=== PATIENT | male | born 1960 | race Caucasian/White ===

== ENCOUNTER 2024-08-07 16:50 | Inpatient (IN) | payer OTHER ==
[~2024-08-07] VITALS: Ht 177.8 cm; Wt 91.5 kg
--- NOTE | 2024-08-07 17:21 | DVH ---
CHEST RADIOGRAPH Indication: DIZZINESS Technique: Single frontal view of the chest was obtained COMPARISON: None FINDINGS: Lines and Tubes: None Lungs: Clear Pleura: No effusion. No pneumothorax. Cardiomediastinal contours: Moderately severe cardiomegaly. Prominence of the right heart border. Bones: Unremarkable IMPRESSION: 1. Moderately severe cardiomegaly No CHF pattern No pleural effusions
[2024-08-07 17:24] LABS: Urine Bacteria None Seen /hpf (None Seen)
--- NOTE | 2024-08-07 17:27 | ED.PDOC ---
History of Present Illness HPI Comments 64 y/o M, with a history with CHF and cardiomyopathy, is BIBA for c/o multiple near-syncope episodes, with associated dizzy spells and lightheadedness for the past 2x days. Patient endorses on most recent onset of symptoms taking place, earlier, today, while at a [employer]. He comments on pending further studies at [facility] for his cardiomyopathy of unknown etiology amidst nuclear and MRI workup showing no significant findings and his ejection fraction, currently, being less than 30%. He denies having any chest pain, shortness of breath, vision or speech changes, weakness, fever, chills, or other associated symptoms or modifiers at this time. 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 Past Medical History PAST MEDICAL HISTORY: CHF Past Medical History (Other): cardiomyopathy Surgical History: Denies all surgeries Family History Family History: Unknown Social History Smoker: Non-Smoker Alcohol: Denies ETOH Use Drugs: Denies Drug Use Lives In: Home Cardiovascular: reports: dizzy spells, lightheadedness, others (near-syncope ) All Other Systems: Reviewed and Negative (negative unless otherwise stated above or in HPI) Physical Exam General Appearance: No Apparent Distress, Normal HEENT: Normal ENT Inspection, Pharynx Normal, TMs Normal Neck: Full Range of Motion, Non-Tender, Normal, Normal Inspection Respiratory: Chest Non-Tender, Lungs Clear, No Accessory Muscle Use, No Respiratory Distress, Normal Breath Sounds Cardiovascular: No Edema, No JVD, No Murmur, No Gallop, Normal Peripheral Pulses, Other (regular rate, irregular rhythm) Breast Exam: Deferred Gastrointestinal: No Organomegaly, Non Tender, No Pulsatile Mass, Normal Bowel Sounds, Soft Genitalia: Deferred Pelvic: Deferred Rectal: Deferred Extremities: No calf tenderness, Normal capillary refill, Normal inspection, Normal range of motion, Non-tender, No pedal edema Musculoskeletal : Apperance: Normal Neurologic: Alert, brewmaster II-XII nml as Tested, No Motor Deficits, Normal Affect, Normal Mood, No Sensory Deficits Cerebellar Function: Normal Reflexes: Normal Skin: Dry, Normal Color, Warm Lymphatic: No Adenopathy Was a procedure done? Was a procedure done?: No EKG EKG : Pulse Rate (adult): 84 Cardiac Rhythm: NSR Block: RBBB Hypertrophy: LVH Comments left anterior fascicular block 1st degree AV block and type II second degree AV block w/junctional escape beats Differential Dx Considerations may include: vasovagal response, URI, viral syndrome, electrolyte imbalance, stemi, nstemi, advanced heart block, chf, arrhythmias X-Ray, Labs, Meds, VS Vital Signs Date Time Temp Pulse Resp B/P (MAP) Pulse Ox O2 Delivery O2 Flow Rate FiO2 08/07/24 17:46 104 25 114/66 (82) 97 08/07/24 17:27 84 08/07/24 17:09 Room Air* 0 21 08/07/24 16:54 43 08/07/24 16:54 98.0 45 24 130/73 (92) 95 08/07/24 16:50 84 Lab Test 08/07/24 18:15 08/07/24 17:24 08/07/24 17:19 Range/Units Troponin I High Sensitivity 102 *H 100 *H </=54 ng/L Urine Color Light-yellow Yellow Urine Clarity Clear Clear Urine pH 5.5 5.0-9.0 Urine Specific [place] 1.018 1.001-1.035 Urine Protein Negative Negative Urine Ketones Negative Negative Urine Blood Negative Negative /uL Urine Nitrite Negative Negative Urine Bilirubin Negative Negative Urine Urobilinogen Normal Negative mg/dL Urine Leukocyte Esterase Negative Negative /uL Urine RBC 5 0 - 3 /hpf Urine Microscopic WBC 1 0-3 /HPF Urine Squamous Epithelial Cells None seen <5 /hpf Urine Bacteria None seen None Seen /hpf Urine Glucose Normal Normal mg/dL White Blood Count 9.3 4.4-10.8 10^3/uL Red Blood Count 5.03 4.5-5.90 10^6/uL Hemoglobin 15.7 13.5-17.5 g/dL Hematocrit 46.6 41.0-53.0 % Mean Corpuscular Volume 92.6 80.0-100.0 fL Mean Corpuscular Hemoglobin 31.2 28.0-32.0 pg Mean Corpuscular Hemoglobin Concent 33.7 32.0-36.0 g/dL Red Cell Distribution Width 14.6 H 11.8-14.3 % Platelet Count 195 140-450 10^3/uL Mean Platelet Volume 6.7 L 6.9-10.8 fL Neutrophils (%) (Auto) 79.4 37.0-80.0 % Lymphocytes (%) (Auto) 14.2 10.0-50.0 % Monocytes (%) (Auto) 5.7 0.0-12.0 % Eosinophils (%) (Auto) 0.2 0.0-7.0 % Basophils (%) (Auto) 0.5 0.0-2.0 % Neutrophils # (Auto) 7.4 1.6-8.6 10 ^3/uL Lymphocytes # (Auto) 1.3 0.4-5.4 10 ^3/uL Monocytes # (Auto) 0.5 0-1.3 10 ^3/uL Eosinophils # (Auto) 0 0-0.8 10 ^3/uL Basophils # (Auto) 0 0-0.2 10 ^3/uL Nucleated Red Blood Cells 0.3 % Sodium Level 142 136-145 mmol/L Potassium Level 5.0 3.5-5.1 mmol/L Chloride Level 109 H 98-107 mmol/L Carbon Dioxide Level 26 20-31 mmol/L Anion Gap 7 5-15 Blood Urea Nitrogen 16 9-23 mg/dL Creatinine 1.22 0.700-1.30 mg/dL Glomerular Filtration Rate Calc 66 >90 mL/min BUN/Creatinine Ratio 13.1 10.0-20.0 Serum Glucose 113 H 74-106 mg/dL Calcium Level 9.7 8.7-10.4 mg/dL Current Medications Medications (Trade) Dose Ordered Sig/Dorota Route Start Time Stop Time Status Last Admin Aspirin 325 mg ONCE ONCE PO 08/07/24 18:30 08/07/24 18:44 DC 08/07/24 18:50 Heparin Sodium (Porcine) 5,000 units ONCE ONCE IV 08/07/24 18:30 08/07/24 18:44 DC 08/07/24 18:51 Time of 1ST Reevaluation: 17:30 Reevaluation 1ST: Unchanged Time of 2ND Reevaluation: 19:00 Reevaluation 2ND: Improved Patient Education/Counseling: Diagnosis, Treatment, Prognosis, Need For Follow Up Family Education/Counseling: No Family Present Additional Information - The following tests were ordered, and results were reviewed by me: CXR. EKG, troponin, CBC, CMP, BMP - Additional information was gathered from interviewing the following independent Historian: EMT - I reviewed and agreed with the following test results read by other provider: CXR - I discussed treatments and results with medical personnel and Dr Graham, [facility] #[id number] pt has cardiomyopathy of unknown origin. he had been a heavy drinker years ago. currently has has several high degree heart blocks, including RBBB, LAFB, also 1st degree and type 2 2nd degree block. his troponin is also elevated, suggesting NSTEMI. Timo has agreed to admit her here for further cardiology eval Departure 1 Departure Time of Disposition: 19:00 Impression: Primary Impression: NSTEMI (non-ST elevated myocardial infarction) Additional Impressions: 1st degree AV block Second degree heart block RBBB Cardiomyopathy Qualified Codes: I42.9 - Cardiomyopathy, unspecified Near syncope Bradycardia Disposition: ADMITTED INPATIENT Admit to: ICU Condition: Critical Discharged With: Self Critical Care Note Critical Care Time?: Yes (90 min-critical care time only) Critical care comment: due to concerns for patient's condition deteriorating, the care required my highest level of attention and readiness to intervene. i assessed the patient's condition, ordered the proper tests and treatments, reassessed for response and reviewed the results. i communicated with medical personnel and formulated a plan of care. total critical care time does not include any procedures Stability Stability form required: No Heart Score Heart Score: Heart Score Response (Comments) Value History Highly Suspicious 2 EKG Repolarization Disturb (conduction abnormality) 1 Age >65 2 Risk Factors >3 or Hx ASHD 2 Troponin >3 x's Normal limit 2 Total 9 I personally scribed for LINDA GIL MD ([email or web address]) on 08/07/24 at 17:27. Electronically submitted by Simone Harvey [email or web address]). LINDA GIL MD Aug 07, 2024 17:27
[2024-08-07 17:44] LABS: Basophils # (auto) 0 10 ^3/uL (0-0.2); Basophils % (auto) 0.5 % (0.0-2.0); Eosinophils # (auto) 0 10 ^3/uL (0-0.8); Eosinophils % (auto) 0.2 % (0.0-7.0); Hematocrit 46.6 % (41.0-53.0); Hemoglobin 15.7 g/dL (13.5-17.5); Lymphocytes # (auto) 1.3 10 ^3/uL (0.4-5.4); Lymphocytes % (auto) 14.2 % (10.0-50.0); Mean Corpuscular Hemoglobin 31.2 pg (28.0-32.0); Mean Corpuscular Hgb Conc. 33.7 g/dL (32.0-36.0); Mean Corpuscular Volume 92.6 fL (80.0-100.0); Monocytes # (auto) 0.5 10 ^3/uL (0-1.3); Monocytes % (auto) 5.7 % (0.0-12.0); Neutrophils # (auto) 7.4 10 ^3/uL (1.6-8.6); Neutrophils % (auto) 79.4 % (37.0-80.0); Nucleated Red Blood Cells % 0.3 %; Platelet Count (auto) 195 10^3/uL (140-450); Red Blood Cells 5.03 10^6/uL (4.5-5.90); Red Cell Distribution Width 14.6 % (11.8-14.3); White Blood Cell 9.3 10^3/uL (4.4-10.8)
[2024-08-07 17:58] LABS: Anion Gap 7 (5-15)
[2024-08-07 18:12] LABS: Urine Blood Negative /uL (Negative); Urine Clarity Clear (Clear); Urine Color Light-Yellow (Yellow); Urine Protein, UAD Negative (Negative); Urine Specific Gravity 1.018 (1.001-1.035); Urine Squamous Epithelial Cell None Seen /hpf (<5); Urine Urobilinogen Normal (Negative); Urine WBC 1 /HPF (0-3); Urine pH 5.5 (5.0-9.0)
[2024-08-07 18:15] LABS: BUN/Creatinine Ratio 13.1 (10.0-20.0)
[2024-08-07 18:16] LABS: Blood Urea Nitrogen 16 mg/dL (9-23); Calcium 9.7 mg/dL (8.7-10.4); Carbon Dioxide 26 mmol/L (20-31); Chloride 109 mmol/L (98-107); Glucose 113 mg/dL (74-106); Sodium 142 mmol/L (136-145)
--- NOTE | 2024-08-07 18:41 | ECG ---
[facility] Test Date: 2024-08-07 Test Time: 16:46:27 Pat Name: MAGDA STEWART Department: ED Room: 0217T Gender: M Science Editor: VICTOR M : 1960 Requested By: LINDA GIL Order Number: [id number] Reading MD: Donal Sullivan Measurements Intervals [place] Rate: 84 P: 94 DE: 269 QRS: -85 QRSD: 147 T: 43 QT: 431 QTc: 510 Interpretive Statements Sinus rhythm Prolonged DE interval Consider right atrial enlargement RBBB and LAFB Probable left ventricular hypertrophy Baseline wander in lead(s) I,III,aVL,aVF Electronically Signed On 08-10-2024 8:23:27 PST by Donal Sullivan Please click the below link to view image of tracing.
[2024-08-07] MEDS: ASPirin 325 MG TAB PO ONE (18:50)
[2024-08-07] MEDS: HEPARIN SODIUM (PORCINE) 5000 UNITS/ML 1ML VIAL IV ONE (18:51)
[2024-08-07 19:30] VITALS: PULSE 93; RESP 18; O2SAT 98
[2024-08-07] MEDS ORDERED: ACETAMINOPHEN 325 MG TAB PO PRN (20:00)
[2024-08-07] MEDS ORDERED: HYDROcodone-ACET 5/325MG TAB PO PRN (20:00)
[2024-08-07] MEDS ORDERED: DOCUSATE SOD 100 MG CAP PO PRN (20:00)
[2024-08-07] MEDS ORDERED: ONDANSETRON HCL 4 MG/2 ML VIAL IV PRN (20:00)
--- NOTE | 2024-08-07 20:57 | DVHHP2 ---
History of Present Illness Reason for Visit: NSTEMI (non-ST elevated myocardial infarction) History of Present Illness The patient is a 64-year-old male with past medical history of CHF and cardiomyo nayely who presented to [facility] ED for evaluation of multiple near syncopal episode. Patient reports symptoms progressively get worse with dizzy spells, lightheadedness for the past 2 days, getting worse today that prompted this visit. He reports on pending further studies at [facility] for his cardiomyopathy of unknown etiology amidst nuclear and MRI workup showing no significant findings and his ejection fraction, currently, being less than 30%. Patient was seen and evaluated in the ED, laboratory data shows WBC 9.3, platelets 195, sodium 142, potassium 5.0, BUN 16, creatinine 1.22, GFR 66, glucose 113, troponin 102, blood pressure 114/66, heart rate 84, temperature 98.0 F, O2 saturation 97% on room. Chest x-ray revealing moderately severe cardiomegaly, no CHF pattern, no pleural effusions. Please see medication orders section in the computer. On my assessment, patient denied chest pain, no headache, no diaphoresis, no shortness of breaths, no nausea, no vomiting, no fever, no chills. Patient was admitted for further evaluation and medical management. Past Medical History CHF, Cardiomyopathy Past Surgical History Denies all surgeries Family History Reviewed, noncontributory to the management of this case. Past Social History The patient lives at home, denies smoking, alcohol or illicit drugs abuse. Review of Systems Constitutional: No: Fever, Chills, Sweats, Weakness, Malaise, Other Eyes: No: Pain, Vision change, Conjunctivae inflammation, Eyelid inflammation, Other, Redness ENT: No: Ear pain, Ear discharge, Nose pain, Nose discharge, Nose congestion, Mouth pain, Mouth swelling, Throat pain, Throat swelling, Other Respiratory: No: Cough, Dry, Shortness of breath, SOB with excertion, Wheezing, Hemoptysis, Pleuritic Pain, Sputum, Wheezing, Other Cardiovascular: Lt Headedness, Other (Near syncopal episode, dizzy spells.); No: Chest Pain, Palpitations, Orthopnea, Paroxysmal Noc. Dyspnea, Edema Gastrointestinal: No: Nausea, Vomiting, Abdominal Pain, Diarrhea, Constipation, Melena, Hematochezia, Other Genitourinary: No Dysuria, No Frequency, No Incontinence, No Hematuria, No Retention, No Other Musculoskeletal: No: other, neck pain, shoulder pain, arm pain, back pain, hand pain, leg pain, foot pain Skin: No: Rash, Lesions, Jaundice, Bruising, Other Neurological: No: Weakness, Numbness, Incoordination, Change in speech, Confusion, Seizures, Other Allergies: Coded Allergies: NO KNOWN ALLERGIES (Unverified , 08/07/24) Medications Current Medications Medications Dose Ordered Sig/Dorota Route Start Time Stop Time Status Last Admin Dose Admin Aspirin 81 mg DAILY PO 08/08/24 10:00 Atorvastatin Calcium 20 mg HS PO 08/07/24 22:00 Sodium Chloride 10 ml Q8HR IV 08/07/24 22:00 Acetaminophen/ Hydrocodone Bitart 1 tab Q4HP PRN PO 08/07/24 20:00 Ondansetron HCl 4 mg Q4HP PRN IV 08/07/24 20:00 Docusate Sodium 100 mg BIDPRN PRN PO 08/07/24 20:00 Acetaminophen 650 mg Q6HP PRN PO 08/07/24 20:00 Exam Vital Signs Vital Signs Date Time Temp Pulse Resp B/P (MAP) Pulse Ox O2 Delivery O2 Flow Rate FiO2 08/07/24 19:30 98.0 93 18 127/83 (98) 98 98.0 08/07/24 19:30 Room Air* 0 21 General Appearance: Alert, Oriented X3, Cooperative, No acute distress HEENT: Atraumatic, PERRLA, EOMI, Mucous membr. moist/pink Respiratory: Clear to auscultation, Normal air movement Cardiovascular: Regular rate, Normal S1, Normal S2, No murmurs Abdominal: Normal bowel sounds, Soft, No tenderness, No hepatospenomegaly, No masses Extremities: No clubbing, No cyanosis, No edema, Normal pulses, No tenderness/swelling Skin: No rashes, No breakdown, No significant lesion Neuro: Normal gait, Normal speech, Strength at 5/5 X4 ext, Normal tone, Sensation intact, Cranial nerves 3-12 NL, Reflexes 2+ Psych/Mental Status: Mental status NL, Mood NL Labs/Xrays Labs Test 08/07/24 20:15 08/07/24 17:24 08/07/24 17:19 Range/Units Troponin I High Sensitivity 102 *H </=54 ng/L Urine Color Light-yellow Yellow Urine Clarity Clear Clear Urine pH 5.5 5.0-9.0 Urine Specific [place] 1.018 1.001-1.035 Urine Protein Negative Negative Urine Ketones Negative Negative Urine Blood Negative Negative /uL Urine Nitrite Negative Negative Urine Bilirubin Negative Negative Urine Urobilinogen Normal Negative mg/dL Urine Leukocyte Esterase Negative Negative /uL Urine RBC 5 0 - 3 /hpf Urine Microscopic WBC 1 0-3 /HPF Urine Squamous Epithelial Cells None seen <5 /hpf Urine Bacteria None seen None Seen /hpf Urine Glucose Normal Normal mg/dL White Blood Count 9.3 4.4-10.8 10^3/uL Red Blood Count 5.03 4.5-5.90 10^6/uL Hemoglobin 15.7 13.5-17.5 g/dL Hematocrit 46.6 41.0-53.0 % Mean Corpuscular Volume 92.6 80.0-100.0 fL Mean Corpuscular Hemoglobin 31.2 28.0-32.0 pg Mean Corpuscular Hemoglobin Concent 33.7 32.0-36.0 g/dL Red Cell Distribution Width 14.6 H 11.8-14.3 % Platelet Count 195 140-450 10^3/uL Mean Platelet Volume 6.7 L 6.9-10.8 fL Neutrophils (%) (Auto) 79.4 37.0-80.0 % Lymphocytes (%) (Auto) 14.2 10.0-50.0 % Monocytes (%) (Auto) 5.7 0.0-12.0 % Eosinophils (%) (Auto) 0.2 0.0-7.0 % Basophils (%) (Auto) 0.5 0.0-2.0 % Neutrophils # (Auto) 7.4 1.6-8.6 10 ^3/uL Lymphocytes # (Auto) 1.3 0.4-5.4 10 ^3/uL Monocytes # (Auto) 0.5 0-1.3 10 ^3/uL Eosinophils # (Auto) 0 0-0.8 10 ^3/uL Basophils # (Auto) 0 0-0.2 10 ^3/uL Nucleated Red Blood Cells 0.3 % Sodium Level 142 136-145 mmol/L Potassium Level 5.0 3.5-5.1 mmol/L Chloride Level 109 H 98-107 mmol/L Carbon Dioxide Level 26 20-31 mmol/L Anion Gap 7 5-15 Blood Urea Nitrogen 16 9-23 mg/dL Creatinine 1.22 0.700-1.30 mg/dL Glomerular Filtration Rate Calc 66 >90 mL/min BUN/Creatinine Ratio 13.1 10.0-20.0 Serum Glucose 113 H 74-106 mg/dL Calcium Level 9.7 8.7-10.4 mg/dL B-Type Natriuretic Peptide 95.25 0-100 pg/mL PATIENT: MAGDA STEWART ACCT: [id number] UNIT: [id number] : 1960 LOC: ER ROOM / BED: / AGE / SEX: 64 / M ADM STATUS: REG ER SERVICE 56 ORDERING PHYSICIAN: LINDA GIL MD PROCEDURE(s): CXRP - CHEST PORTABLE REASON: DIZZINESS ORDER NUMBER(s): [id number], ACCESSION NUMBER(s): [id number] CHEST RADIOGRAPH Indication: DIZZINESS Technique: Single frontal view of the chest was obtained COMPARISON: None FINDINGS: Lines and Tubes: None Lungs: Clear Pleura: No effusion. No pneumothorax. Cardiomediastinal contours: Moderately severe cardiomegaly. Prominence of the right heart border. Bones: Unremarkable IMPRESSION: 1. Moderately severe cardiomegaly No CHF pattern No pleural effusions Assessment/Plan Assessment/Plan NSTEMI (non-ST elevated myocardial infarction) Bradycardia 1st degree AV block Second degree heart block RBBB Near syncope Cardiomyopathy Cardiomyopathy, unspecified Plan 1. Admit to telemetry unit 2. Breathing treatment 3. Pain control management 4. Management of fluids and electrolytes 5. Consultation for Cardiology 6. Diagnostic tests chest x-ray 7. DVT prophylaxis-on aspirin 8. Repeat labs CBC, CMP in a.m. 9. Continue with current medical management 10. Treatment plan discussed with patient and RN. Patient verbalized understanding. Plan discussed with: Patient, Other (RN) My Orders Orders - TERESITA RICHARDSON DNP Procedure Category Date Status Time * Cardiology Consult CONS 08/07/24 Transmitted 19:55 Aspirin Tablet PHA 08/08/24 In Process 10:00 Troponin-I Hs LAB 08/07/24 Logged 22:55 Troponin-I Hs LAB 08/08/24 Verified 02:00 Troponin-I Hs LAB 08/08/24 Verified 06:00 Atorvastatin (Lipitor) PHA 08/07/24 In Process 22:00 Allergies ALLEN 08/07/24 In Process 19:55 Code Status CODE 08/07/24 Transmitted 19:55 Sodium Chloride Lock PHA 08/07/24 In Process (Saline Lock Ns) 22:00 Oxygen Per Hour RT 08/07/24 Transmitted 19:55 Hydrocodone-Acet PHA 08/07/24 In Process 5/325mg Tab (Martin 20:00 Ondansetron Hcl PHA 08/07/24 In Process (Zofran) 20:00 Docusate Sodium PHA 08/07/24 In Process Capsule (Colace 20:00 Fall Risk Precautions ALLEN 08/07/[address] 19:55 Complete Blood Count LAB 08/08/24 Verified 04:00 Comprehensive LAB 08/08/24 Verified Metabolic Panel 04:00 Cardiac DIET 08/08/24 Transmitted Diet-2gna,Lofat,Lochol Breakfast Condition: Serious ALLEN 08/07/24 In Process 19:55 Acetaminophen Tablet PHA 08/07/24 In Process (Tylenol Tablet) 20:00 Sequential ALLEN 08/07/24 In Process Compression Device Admit ADMIT 08/07/24 Transmitted 20:56 Nitroglycerin PHA 08/07/24 Transmitted Sublingual (Ntrostat 21:00 Morphine Sulfate PHA 08/07/24 Transmitted Injection 21:00 Notify Of Changes ALLEN 08/07/24 Transmitted From Base 20:56 Carbon Sequestration Plant Operator For ALLEN 08/07/24 Transmitted 24 Hours 20:56 Emergency Dysrhythmia ALLEN 08/07/24 Transmitted Protocol 20:56 Rhythm Strips Once ALLEN 08/07/24 Transmitted Every Shift 20:56 Oxygen By Nasal RT 08/07/24 Transmitted Cannula 20:56 Problem List: (1) NSTEMI (non-ST elevated myocardial infarction) (2) Bradycardia (3) RBBB (4) 1st degree AV block (5) Near syncope (6) Cardiomyopathy (7) Second degree heart block (8) Cardiomyopathy, unspecified Date of Service: Aug 07, 2024 Billing Provider: TERESITA RICHARDSON DNP Common Visit Codes: [id number]-[id number] INP/OBS CARE (HIGH) TERESITA RICHARDSON DNP Aug 07, 2024 20:57
[2024-08-07] MEDS ORDERED: MORPHINE SULFATE INJ 2 MG/ml SYRG IV PRN (21:00)
[2024-08-07] MEDS ORDERED: NITROGLYCERIN 0.4 MG SL TAB SL PRN (21:00)
[2024-08-07] MEDS: SODIUM CHLOR 0.9% PF (SALINE LOCK) 10ML VIAL/SYR IV SCH (22:00)
[2024-08-07] MEDS: ATORVASTATIN 20 MG TAB PO SCH (22:42)
[2024-08-07 23:59] VITALS: BP 122/70; PULSE 81; TEMP 97.5; O2SAT 96
[2024-08-08] VITALS (9 sets, daily range): BP systolic 109–136; BP diastolic 53–79; PULSE 70–91; RESP 16–19; TEMP 97.6–98.6; O2SAT 93–98
[2024-08-08] MEDS ORDERED: COLC1CAP (00:17)
[2024-08-08] MEDS ORDERED: HYDR-4069 (00:17)
[2024-08-08] MEDS ORDERED: ATOM25CA5 (00:17)
[2024-08-08] MEDS ORDERED: LOS25T (00:17)
[2024-08-08 02:37] LABS: Basophils # (auto) 0 10 ^3/uL (0-0.2); Basophils % (auto) 0.4 % (0.0-2.0); Eosinophils # (auto) 0.1 10 ^3/uL (0-0.8); Eosinophils % (auto) 0.9 % (0.0-7.0); Hematocrit 46.1 % (41.0-53.0); Hemoglobin 15.5 g/dL (13.5-17.5); Lymphocytes # (auto) 2.3 10 ^3/uL (0.4-5.4); Lymphocytes % (auto) 27.5 % (10.0-50.0); Mean Corpuscular Hemoglobin 30.9 pg (28.0-32.0); Mean Corpuscular Hgb Conc. 33.6 g/dL (32.0-36.0); Mean Corpuscular Volume 91.9 fL (80.0-100.0); Monocytes # (auto) 0.6 10 ^3/uL (0-1.3); Neutrophils # (auto) 5.4 10 ^3/uL (1.6-8.6); Neutrophils % (auto) 64.2 % (37.0-80.0); Nucleated Red Blood Cells % 0.3 %; Platelet Count (auto) 194 10^3/uL (140-450); Red Blood Cells 5.02 10^6/uL (4.5-5.90); Red Cell Distribution Width 14.6 % (11.8-14.3); White Blood Cell 8.5 10^3/uL (4.4-10.8)
[2024-08-08 02:54] LABS: Alanine Aminotransferase 34 U/L (7-40); Albumin 4.2 g/dL (3.2-4.8); Alkaline Phosphatase 46 U/L (46-116); Anion Gap 8 (5-15); Aspartate Aminotransferase 19 U/L (13-40); BUN/Creatinine Ratio 16.3 (10.0-20.0); Blood Urea Nitrogen 20 mg/dL (9-23); Calcium 9.5 mg/dL (8.7-10.4); Carbon Dioxide 27 mmol/L (20-31); Chloride 109 mmol/L (98-107); Glucose 138 mg/dL (74-106); Potassium 3.9 mmol/L (3.5-5.1); Sodium 144 mmol/L (136-145); Total Protein 5.9 g/dL (5.7-8.2)
[2024-08-08 02:57] LABS: Bilirubin, Total 2.2 mg/dL (0.2-1.0)
[2024-08-08] MEDS: ASPirin 81 mg TAB PO SCH (10:01)
--- NOTE | 2024-08-08 12:36 | DVHPN2 ---
Subjective 64-year-old male was admitted for a presyncopal episode He has a history of cardiomegaly and cardiomyopathy last ejection fraction according to him few months ago was 30% He follows his care at [place] and apparently he had workup including a heart catheterization and an MRI of the heart and he says the tests were normal and therefore the it is not known what his cardiomyopathy is caused by He has a history of heavy alcohol drinking and he has not done any drugs for many years now Changes from previous H/P or p: Changes Eyes: No Pain, No Vision change, No Conjunctivae inflammation, No Eyelid inflammation, No Other, No Redness ENT: No Ear pain, No Ear discharge, No Nose pain, No Nose discharge, No Nose congestion, No Mouth pain, No Mouth swelling, No Throat pain, No Throat swelling, No Other Cardiovascular: No Chest Pain, No Palpitations, No Orthopnea, No Paroxysmal Noc. Dyspnea, No Edema; Lt Headedness, Other (Near syncopal episode, dizzy spells.) Respiratory: No Cough, No Dry, No Shortness of breath, No SOB with excertion, No Wheezing, No Hemoptysis, No Pleuritic Pain, No Sputum, No Other Gastrointestinal: No Nausea, No Vomiting, No Abdominal Pain, No Diarrhea, No Constipation, No Melena, No Hematochezia, No Other Genitourinary: No Dysuria, No Frequency, No Incontinence, No Hematuria, No Retention, No Other Musculoskeletal: No other, No neck pain, No shoulder pain, No arm pain, No back pain, No hand pain, No leg pain, No foot pain Skin: No Rash, No Lesions, No Jaundice, No Bruising, No Other Objective Vitals Vital Signs Date Time Temp Pulse Resp B/P (MAP) Pulse Ox O2 Delivery O2 Flow Rate FiO2 08/08/24 08:00 70 08/08/24 08:00 Room Air* 0 21 08/08/24 07:50 97.7 16 121/77 (92) 97 97.7 Intake/Output Intake and Output 08/08/24 07:00 Intake Total 110 ml Balance 110 ml Intake Oral 110 ml # Voids 1 General Appearance: Alert, Oriented X3, Cooperative, No acute distress Lungs: Clear to auscultation, Normal air movement Cardiovascular: Regular rate, Normal S1, Normal S2 Abdomen: Normal bowel sounds, Soft, No tenderness Extremities: No edema Medications Current Medications Medications Dose Ordered Sig/Dorota Route Start Time Stop Time Status Last Admin Dose Admin Aspirin 81 mg DAILY PO 08/08/24 10:00 08/08/24 10:01 81 MG Atorvastatin Calcium 20 mg HS PO 08/07/24 22:00 08/07/24 22:42 20 MG Sodium Chloride 10 ml Q8HR IV 08/07/24 22:00 08/08/24 06:13 10 ML Acetaminophen/ Hydrocodone Bitart 1 tab Q4HP PRN PO 08/07/24 20:00 Ondansetron HCl 4 mg Q4HP PRN IV 08/07/24 20:00 Docusate Sodium 100 mg BIDPRN PRN PO 08/07/24 20:00 Acetaminophen 650 mg Q6HP PRN PO 08/07/24 20:00 Nitroglycerin 0.4 mg Q5MINP PRN SL 08/07/24 21:00 Morphine Sulfate 2 mg Q30M PRN IV 08/07/24 21:00 Laboratory Results Laboratory Tests 08/08/24 02:00 Chemistry Test 08/07/24 17:19 08/08/24 02:00 Calcium Level 9.7 mg/dL (8.7-10.4) 9.5 mg/dL (8.7-10.4) Albumin 4.2 g/dL (3.2-4.8) Total Protein 5.9 g/dL (5.7-8.2) Cardiac Markers Test 08/07/24 17:19 B-Type Natriuretic Peptide 95.25 pg/mL (0-100) LFT Test 08/08/24 02:00 Alanine Aminotransferase (ALT) 34 U/L (7-40) Alkaline Phosphatase 46 U/L (46-116) Aspartate Amino Transferase (AST) 19 U/L (13-40) Total Bilirubin 2.2 mg/dL (0.2-1.0) H Urinalysis Test 08/07/24 17:24 Urine Color Light-yellow (Yellow) Urine Clarity Clear (Clear) Urine pH 5.5 (5.0-9.0) Urine Specific [place] 1.018 (1.001-1.035) Urine Protein Negative (Negative) Urine Ketones Negative (Negative) Urine Blood Negative /uL (Negative) Urine Nitrite Negative (Negative) Urine Bilirubin Negative (Negative) Urine Urobilinogen Normal mg/dL (Negative) Urine Leukocyte Esterase Negative /uL (Negative) Urine RBC 5 /hpf (0 - 3) Urine Microscopic WBC 1 /HPF (0-3) Urine Squamous Epithelial Cells None seen /hpf (<5) Urine Bacteria None seen /hpf (None Seen) Urine Glucose Normal mg/dL (Normal) Assessment/Plan Assessment/Plan Presyncope Acute on chronic heart failure, systolic Idiopathic cardiomyopathy versus alcoholic cardiomyopathy versus viral, undetermined at this time Elevated troponin Second degree heart block Right bundle branch block Plan Consult cardiology Echocardiogram Aspirin Lipitor Resume home dose losartan 25 mg daily Full code Advance directives discussed for 18 minutes Stable for transfer Plan discussed with: Patient Date of Service: Aug 08, 2024 Billing Provider: JOHN CONNER MD Common Visit Codes: [id number] INP/OBS CARE(HIGH) Secondary Visit Codes: [id number] CARE PLAN 30 MINUTES JOHN CONNER MD Aug 08, 2024 12:36
[2024-08-08] MEDS: LOSARTAN POTASSIUM 25 MG TAB PO ONE (13:02)
--- NOTE | 2024-08-08 13:19 | DVHINCON2 ---
TOÑA MARTINO [facility] 08/08/24 1319: Date Seen: Aug 08, 2024 Referring Physician DAVID Carrera Reason for Consultation NSTEMI History of Present Illness This 64-year-old male presents in the ED via EMS with a chief complaint of near- syncope. The patient reports presyncopal episodes x2. The 1st one was two weeks ago while having dinner with vomiting and the 2nd episode was when he was out shopping leading him to call 911. Patient with significant past medical history of CHF with stated low EF 30%, cardiomyopathy, hypertension, and obesity . The patient currently denies chest pain, dizziness, shortness of breath, LONGO, PND, or other acute symptoms. Past Medical History As stated in HPI Past Surgical History Denies Family History: Cardiac dysrhythmia G8 MOTHER FH: lung cancer G8 FATHER Family History Reviewed, non-contributory to the management of this case. Social History The patient lives at home, denies smoking, alcohol or illicit drugs abuse. Allergies: Coded Allergies: NO KNOWN ALLERGIES (Unverified , 08/07/24) Home Meds Reported Medications Colchicine (Colchicine) 0.6 Mg Cap 08/08/24 Losartan Potassium (Losartan Potassium) 25 Mg Tab, 1 08/08/24 Atomoxetine HCl (Atomoxetine) 25 Mg Cap 08/08/24 Hydrocodone-Acetaminophen (Hydrocodone/Acetaminophen 7.5-325 mg) 1 Tab Tab 08/08/24 Current Medications Current Medications Medications (Trade) Dose Ordered Sig/Dorota Route PRN Reason Start Time Stop Time Status Last Admin Aspirin 81 mg DAILY PO 08/08/24 10:00 08/08/24 10:01 Atorvastatin Calcium (Lipitor) 20 mg HS PO 08/07/24 22:00 08/07/24 22:42 Sodium Chloride (Saline Lock Ns) 10 ml Q8HR IV 08/07/24 22:00 08/08/24 13:03 Acetaminophen/ Hydrocodone Bitart ([place] 5/325MG Tab) 1 tab Q4HP PRN PO MODERATE PAIN (4-6 PAIN SCALE) 08/07/24 20:00 Ondansetron HCl (Zofran) 4 mg Q4HP PRN IV NAUSEA / VOMITING 08/07/24 20:00 Docusate Sodium (Colace Capsule) 100 mg BIDPRN PRN PO FOR CONSTIPATION 08/07/24 20:00 Acetaminophen (Tylenol Tablet) 650 mg Q6HP PRN PO PAIN SCALE 1-3 OR TEMP>100.4 08/07/24 20:00 Nitroglycerin (Ntrostat Sublingual) 0.4 mg Q5MINP PRN SL FOR CHEST PAIN 08/07/24 21:00 Morphine Sulfate 2 mg Q30M PRN IV FOR CHEST PAIN 08/07/24 21:00 Losartan Potassium (Cozaar Tablet) 25 mg DAILY PO 08/09/24 10:00 Review of Systems Constitutional: No symptom reported Ears, Nose, & Throat: No symptom reported Eyes: No symptom reported Neurological: No symptoms reported Pulmonary/Respiratory: No symptom reported Cardiovascular: No symptom reported Gastrointestinal: No symptom reported Genitourinary: No symptom reported Musculoskeletal: No symptom reported Skin: No symptom reported Psychiatric: No symptom reported Endocrine: No symptom reported Hemotologic/Lymphatic: No symptom reported Vital Signs Vital Signs Date Time Temp Pulse Resp B/P (MAP) Pulse Ox O2 Delivery O2 Flow Rate FiO2 08/08/24 13:02 110/72 08/08/24 12:45 97.7 73 19 96 97.7 08/08/24 08:00 Room Air* 0 21 Physical Exam INITIAL VITAL SIGNS: Reviewed by me GENERAL: Alert and interactive. No acute distress. HEAD: Head is normocephalic and atraumatic. EYES: EOMI, PERRL. No scleral icterus. No conjunctival injection. ENT: Moist mucous membranes. NECK: Supple, No masses, Full range of motion. RESPIRATORY: No tachypnea. Clear breath sounds bilaterally. No wheezing, rales, rhonchi. CV: Regular rate and rhythm. No murmurs, rubs, or gallops. GI/: Active bowel sounds, soft, nondistended, nontender. No guarding. No rebound. No masses. No CVA tenderness. INTEGUMENTARY: Warm and dry. No obvious rashes. NEUROLOGIC: Alert and oriented. Face is symmetric. Speech is normal. Moves all extremities equally. Labs/Diagnostic Data Labs Test 08/08/24 06:24 08/08/24 02:00 08/07/24 17:24 08/07/24 17:19 Range/Units Troponin I High Sensitivity 107 *H </=54 ng/L White Blood Count 8.5 4.4-10.8 10^3/uL Red Blood Count 5.02 4.5-5.90 10^6/uL Hemoglobin 15.5 13.5-17.5 g/dL Hematocrit 46.1 41.0-53.0 % Mean Corpuscular Volume 91.9 80.0-100.0 fL Mean Corpuscular Hemoglobin 30.9 28.0-32.0 pg Mean Corpuscular Hemoglobin Concent 33.6 32.0-36.0 g/dL Red Cell Distribution Width 14.6 H 11.8-14.3 % Platelet Count 194 140-450 10^3/uL Mean Platelet Volume 6.6 L 6.9-10.8 fL Neutrophils (%) (Auto) 64.2 37.0-80.0 % Lymphocytes (%) (Auto) 27.5 10.0-50.0 % Monocytes (%) (Auto) 7.0 0.0-12.0 % Eosinophils (%) (Auto) 0.9 0.0-7.0 % Basophils (%) (Auto) 0.4 0.0-2.0 % Neutrophils # (Auto) 5.4 1.6-8.6 10 ^3/uL Lymphocytes # (Auto) 2.3 0.4-5.4 10 ^3/uL Monocytes # (Auto) 0.6 0-1.3 10 ^3/uL Eosinophils # (Auto) 0.1 0-0.8 10 ^3/uL Basophils # (Auto) 0 0-0.2 10 ^3/uL Nucleated Red Blood Cells 0.3 % Sodium Level 144 136-145 mmol/L Potassium Level 3.9 3.5-5.1 mmol/L Chloride Level 109 H 98-107 mmol/L Carbon Dioxide Level 27 20-31 mmol/L Anion Gap 8 5-15 Blood Urea Nitrogen 20 9-23 mg/dL Creatinine 1.23 0.700-1.30 mg/dL Glomerular Filtration Rate Calc 65 >90 mL/min BUN/Creatinine Ratio 16.3 10.0-20.0 Serum Glucose 138 H 74-106 mg/dL Calcium Level 9.5 8.7-10.4 mg/dL Total Bilirubin 2.2 H 0.2-1.0 mg/dL Aspartate Amino Transferase (AST) 19 13-40 U/L Alanine Aminotransferase (ALT) 34 7-40 U/L Alkaline Phosphatase 46 46-116 U/L Total Protein 5.9 5.7-8.2 g/dL Albumin 4.2 3.2-4.8 g/dL Urine Color Light-yellow Yellow Urine Clarity Clear Clear Urine pH 5.5 5.0-9.0 Urine Specific [place] 1.018 1.001-1.035 Urine Protein Negative Negative Urine Ketones Negative Negative Urine Blood Negative Negative /uL Urine Nitrite Negative Negative Urine Bilirubin Negative Negative Urine Urobilinogen Normal Negative mg/dL Urine Leukocyte Esterase Negative Negative /uL Urine RBC 5 0 - 3 /hpf Urine Microscopic WBC 1 0-3 /HPF Urine Squamous Epithelial Cells None seen <5 /hpf Urine Bacteria None seen None Seen /hpf Urine Glucose Normal Normal mg/dL B-Type Natriuretic Peptide 95.25 0-100 pg/mL PROCEDURE(s): CXRP - CHEST PORTABLE REASON: DIZZINESS ORDER NUMBER(s): [id number], ACCESSION NUMBER(s): [id number] CHEST RADIOGRAPH Indication: DIZZINESS Technique: Single frontal view of the chest was obtained COMPARISON: None FINDINGS: Lines and Tubes: None Lungs: Clear Pleura: No effusion. No pneumothorax. Cardiomediastinal contours: Moderately severe cardiomegaly. Prominence of the right heart border. Bones: Unremarkable IMPRESSION: 1. Moderately severe cardiomegaly No CHF pattern No pleural effusions Assessment Presyncope, rule out cardiac etiology NSTEMI ?HFrEF 30% Cardiomegaly Twelve lead EKG-- Second degree heart block and Right bundle branch block Hypertension Obesity Plan/Recommendation Discussed case with Dr. Carvajal and we recommend to following: Echocardiogram Serial troponin levels and electrocardiograms After reviewing 12 lead ECG, presyncope likely due to cardiac etiology, recommendation for outpatient Holter monitor or A1CD placement as permitted by [place] Thank you for allowing us to participate in this patient's care. Please call if you have any questions or concerns. This medical document was created using an electronic medical record system with [employer] system. Although this document has been carefully reviewed, there might still be some phonetic and typographical errors. These areas are purely typographical due to imperfections of the software programs, and do not reflect any compromise in the patient's medical care. Plan discussed with: Patient, Other Plan discussed with: Patient NYHA Physical activity limitations: Class3(Marked) ordinary Date of Service: Aug 08, 2024 Billing Provider: IKSHA CARVAJAL MD Cardiology Common Codes: NOT BILLABLE KISHA CARVAJAL MD 08/08/24 1440: Family History: Cardiac dysrhythmia G8 MOTHER FH: lung cancer G8 FATHER Allergies: Coded Allergies: NO KNOWN ALLERGIES (Unverified , 08/07/24) Home Meds Reported Medications Colchicine (Colchicine) 0.6 Mg Cap 08/08/24 Losartan Potassium (Losartan Potassium) 25 Mg Tab, 1 08/08/24 Atomoxetine HCl (Atomoxetine) 25 Mg Cap 08/08/24 Hydrocodone-Acetaminophen (Hydrocodone/Acetaminophen 7.5-325 mg) 1 Tab Tab 08/08/24 Plan/Recommendation pt seen with RN pt has had recent cMR and nuclear scan awaiting results he has pre syncope and trifascicular block i recommend he tx to [facility] for ICD eval / EP study and HF management pt agrees to plan d/w RN Plan discussed with: Patient TOÑA MARTINO 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
--- NOTE | 2024-08-08 13:27 | DVHSR ---
APPROVED REPORT EXAM: Two-dimensional and M-mode echocardiogram with Doppler and color Doppler. Blood Pressure: 121/77 mmHg INDICATION CHF RISK FACTORS Height: 5' 10", Weight: 201 DIMENSIONS LVDd7.1 (3.8-5.7cm)LA (2D)4.7 (1.9-4.0cm)Aortic Root4.1 (2.0-3.7cm) LVDs6.2 (2.5-4.0cm)LA (MM) (1.9-4.0cm)Aortic Cusp Exc1.9 (1.5-2.0cm) EF (%) 25.0 (55-70%)Rt. Atrium4.1 (1.9-4.0cm)Asc. Aorta cm IVSd1.2 (0.7-1.1cm)RV (D) (1.8-2.4cm) PWd1.2 (0.7-1.1cm) Mitral Valve MitralMitral Stenosis E wave1.30m/sMV Mean GR.mmHg A wave1.60m/sMV Peak GR.mmHg E/A ratio0.82D MVAcm2 Aortic Valve Aortic ValveAortic Stenosis V10.50m/[place] Mean GR.5mmHg V21.40m/[place] Peak GR.8mmHg LVOT Diameter2.6 (1.8-2.4cm)Doppler AVA1.90cm2 Pulmonic Valve V20.60m/s Conclusion severe dilated LV lVEf 25% by visual estimate RV dysfuntion ntoed moderate to severe mitral regurg
--- NOTE | 2024-08-08 14:37 | DVHDS2 ---
Discharge Summary Date of Admission Aug 07, 2024 at 20:56 Date of Discharge: Aug 08, 2024 Labs/Diagnostic Data: Laboratory Results Test 08/08/24 06:24 08/08/24 02:00 08/07/24 17:24 08/07/24 17:19 Troponin I High Sensitivity 107 ng/L (</=54) White Blood Count 8.5 10^3/uL (4.4-10.8) Red Blood Count 5.02 10^6/uL (4.5-5.90) Hemoglobin 15.5 g/dL (13.5-17.5) Hematocrit 46.1 % (41.0-53.0) Mean Corpuscular Volume 91.9 fL (80.0-100.0) Mean Corpuscular Hemoglobin 30.9 pg (28.0-32.0) Mean Corpuscular Hemoglobin Concent 33.6 g/dL (32.0-36.0) Red Cell Distribution Width 14.6 % (11.8-14.3) Platelet Count 194 10^3/uL (140-450) Mean Platelet Volume 6.6 fL (6.9-10.8) Neutrophils (%) (Auto) 64.2 % (37.0-80.0) Lymphocytes (%) (Auto) 27.5 % (10.0-50.0) Monocytes (%) (Auto) 7.0 % (0.0-12.0) Eosinophils (%) (Auto) 0.9 % (0.0-7.0) Basophils (%) (Auto) 0.4 % (0.0-2.0) Neutrophils # (Auto) 5.4 10 ^3/uL (1.6-8.6) Lymphocytes # (Auto) 2.3 10 ^3/uL (0.4-5.4) Monocytes # (Auto) 0.6 10 ^3/uL (0-1.3) Eosinophils # (Auto) 0.1 10 ^3/uL (0-0.8) Basophils # (Auto) 0 10 ^3/uL (0-0.2) Nucleated Red Blood Cells 0.3 % Sodium Level 144 mmol/L (136-145) Potassium Level 3.9 mmol/L (3.5-5.1) Chloride Level 109 mmol/L (98-107) Carbon Dioxide Level 27 mmol/L (20-31) Anion Gap 8 (5-15) Blood Urea Nitrogen 20 mg/dL (9-23) Creatinine 1.23 mg/dL (0.700-1.30) Glomerular Filtration Rate Calc 65 mL/min (>90) BUN/Creatinine Ratio 16.3 (10.0-20.0) Serum Glucose 138 mg/dL (74-106) Calcium Level 9.5 mg/dL (8.7-10.4) Total Bilirubin 2.2 mg/dL (0.2-1.0) Aspartate Amino Transferase (AST) 19 U/L (13-40) Alanine Aminotransferase (ALT) 34 U/L (7-40) Alkaline Phosphatase 46 U/L (46-116) Total Protein 5.9 g/dL (5.7-8.2) Albumin 4.2 g/dL (3.2-4.8) Urine Color Light-yellow (Yellow) Urine Clarity Clear (Clear) Urine pH 5.5 (5.0-9.0) Urine Specific [place] 1.018 (1.001-1.035) Urine Protein Negative (Negative) Urine Ketones Negative (Negative) Urine Blood Negative /uL (Negative) Urine Nitrite Negative (Negative) Urine Bilirubin Negative (Negative) Urine Urobilinogen Normal mg/dL (Negative) Urine Leukocyte Esterase Negative /uL (Negative) Urine RBC 5 /hpf (0 - 3) Urine Microscopic WBC 1 /HPF (0-3) Urine Squamous Epithelial Cells None seen /hpf (<5) Urine Bacteria None seen /hpf (None Seen) Urine Glucose Normal mg/dL (Normal) B-Type Natriuretic Peptide 95.25 pg/mL (0-100) Other Laboratory Tests 08/08/24 02:00 Brief Hx & Hospital Course: Final diagnoses: Presyncope Acute on chronic heart failure, systolic EF 25% Non-Ischemic cardiomyopathy, alcoholic cardiomyopathy versus viral, undetermined at this time Elevated troponin Second degree heart block Right bundle branch block He was admitted for a pre-syncopal episode He had workup previously at [place] with heart cath and MRI: Neg per patient Echo here: EF 25% w severe LV dilation and mod to severe MR The recommendation is for ICD Cardiology recommends ICD Transfer to [place] for continuity of care Stable for transfer Condition at Discharge: Stable Final Diagnosis/Problems List Non ischemic cardiomyopathy CHF Syncope Discharge Disposition: Acute Care Facility SNF Discharge Will this Physician continue t: No Discharge Instruct/Medications Diet: Cardiac 2g Na,low cholest Activity: No Restrictions, As Tolerated Follow Up/Referral: Timo PATEL Medications: See Med Rec Discharge Statement: "Patient was advised to return to the ER or call 911 if any headaches, dizziness, shortness of breath, chest pain, abdominal pain, bleeding, fevers, or worsening of medical condition. Patient was counseled about treatment plan, medications, possible side effects, patientverbalized understanding. All questions were answered to the best of my ability. This discharge took greater then 30 minutes in planning, reviewing documentation, counseling the patient, and discussing with other team members." ASSESSMENT ASSESSMENT Assessment Non ischemic cardiomyopathy CHF Syncope Date of Service: Aug 08, 2024 Billing Provider: JOHN CONNER MD Common Visit Codes: 43755-VSP/OBS DISCH DAY >30min JOHN CONNER MD Aug 08, 2024 14:37
[2024-08-09] MEDS ORDERED: LOSARTAN POTASSIUM 25 MG TAB PO SCH (10:00)
== END 2024-08-08 23:30 | disposition short-term general hospital (02) | DRG 280 ==
LOC: ER 16:50 → EDBD 16:50 → EDUNIT# 16:50 → OVERFLOW 20:56 → TELE-CENTR 23:35
PROVIDERS: ADMIT Nurse Practitioner Family; ATTEND Nurse Practitioner Family
DX: I21.4 Non-ST elevation (NSTEMI) myocardial infarction (principal); I50.23 Acute on chronic systolic (congestive) heart failure; I42.8 Other cardiomyopathies; I42.6 Alcoholic cardiomyopathy; Z68.28 Body mass index [BMI] 28.0-28.9, adult; I44.1 Atrioventricular block, second degree; E66.9 Obesity, unspecified; I45.10 Unspecified right bundle-branch block; I11.0 Hypertensive heart disease with heart failure; Z80.1 Family history of malignant neoplasm of trachea, bronchus and lung; B33.24 Viral cardiomyopathy
CPT/HCPCS: 36415; 71045; 80048; 80053; 81001; 83880; 84484; 85025; 93005; 93306; 96374; 99291; 99292; G0378